=== PATIENT | female | born 1950 | race Caucasian/White ===

== ENCOUNTER → 2023-04-22 09:18 | Outpatient (BNVA) | payer MEDICARE, SELFPAY | PROVIDERS: Visit Provider Family Medicine | DX: E03.9 Hypothyroidism, unspecified (principal) | CPT/HCPCS: 80053; 80061; 84439; 84443; 85025 ==

== ENCOUNTER → 2023-06-04 14:02 | Outpatient (BNVA) | payer MEDICARE, OTHER, SELFPAY | PROVIDERS: Referring Provider Family Medicine; Visit Provider Internal Medicine Cardiovascular Disease | DX: I25.10 Atherosclerotic heart disease of native coronary artery without angina pectoris (principal); J44.9 Chronic obstructive pulmonary disease, unspecified; I10 Essential (primary) hypertension; E03.8 Other specified hypothyroidism; E78.00 Pure hypercholesterolemia, unspecified; K21.9 Gastro-esophageal reflux disease without esophagitis; Z87.891 Personal history of nicotine dependence | CPT/HCPCS: 99204 ==

== ENCOUNTER 2023-07-06 15:10 | Emergency (ER) | payer MEDICARE, OTHER, SELFPAY ==
--- NOTE | 2023-07-06 15:11 | XRR_ITS ---
PROCEDURE INFORMATION: Exam: XR Right Hip Exam date and time: 07/06/2023 3:31 PM Age: 72 years old Clinical indication: Right hip; Prior surgery; Surgery date: 6+ months; Surgery type: RT hip replacement; Patient HX: RT hip pain; HX hip replacement with dislocation x several times; Additional info: R hip pain TECHNIQUE: Imaging protocol: Radiologic exam of the right hip. Views: 1 view hip with pelvis when performed. COMPARISON: No relevant prior studies available. FINDINGS: Bones/joints: There is a dislocated bipolar right hip prosthesis with superior displacement of the femoral component in relation to the acetabular cup. No evidence of underlying fracture. Soft tissues: Unremarkable. XR/XR hip RT 1V wo/w pel [id number] IMPRESSION: Dislocated bipolar right hip prosthesis.
[2023-07-06 15:23] VITALS: BP 171/74; PULSE 64; RESP 18; TEMP 36.4; O2SAT 94; BMI 31.7
--- NOTE | 2023-07-06 15:25 | ED_ITS ---
HPI - Extremity Problem General: Chief complaint: Extremity Problem,Nontraumatic Stated complaint: RIGHT HIP PAIN Time Seen by Provider: 07/06/23 15:11 Source: patient Mode of arrival: EMS History of Present Illness: 72-year-old female with a history of marilyn ateral hip arthroplasties in the past she believes her right hip arthroplasty was done around April 2016. She states since then she has had 6 or 7 dislocations. Today she bent over to get something out of a lower drawer and felt a popping sensation and sudden onset of severe pain she feels like she dislocated her hip again she not strike her head there is no significant fall or trauma. MD Complaint: joint pain Onset (ago): minute(s) Pain Consistency: constant Location: left Quality: sharp Radiation: distal Relieving factors: immobilization Associated symptoms: Deny chest pain, fever(s) or rash Review of Systems Const: Denies: fever(s) or chills Card: Denies: chest pain Resp: Denies: dyspnea GI: Denies: abdominal pain : Denies: dysuria, urinary frequency or urinary urgency Musc: Denies: neck pain or back pain Skin/Breast: Denies: rash PFSH ED PFSH: Medical History Cancer of perirenal tissue Hypercholesteremia Hypothyroidism Hypertension COPD (chronic obstructive pulmonary disease) Surgical History History of bilateral hip replacements History of rotator cuff surgery History of carpal tunnel release History of hernia repair History of cholecystectomy History of bladder surgery Family History Mother Cancer Uterine Other Anesthesia complication CAD (coronary artery disease) Diabetes Hyperlipidemia Hypertension Stroke Denies family history of Liver disease Aneurysm Autoimmune disease Clotting disorder Dementia Hyperthyroidism Psychiatric illness Chronic kidney disease (CKD) Social History Smoking and tobacco/nicotine status: former use of tobacco/nicotine Alcohol intake: current Alcohol intake frequency: few times a month Substance/Drug Use: never Lives independently: Yes Marital status: / Number of children: 1 Current occupational status: retired Debi/Pentecostalism: Confucianist Special debi needs: No Agree to transfusion: Yes Physical Exam Const: GENERAL APPEARANCE: cooperative and comfortable ORIENTATION/CONSCIOUSNESS: Yes awake, Yes oriented to person, Yes oriented to place and Yes oriented to time HENMT: COMMON NORMALS: normocephalic, atraumatic and hearing grossly normal bilaterally HEAD & SCALP: normocephalic and atraumatic Resp: COMMON NORMALS: normal respiratory effort, No retractions, No use of accessory muscles and clear to auscultation bilaterally AUSCULTATION: clear to auscultation bilaterally Cardio: COMMON NORMALS: regular rate, regular rhythm and No murmurs present (Cardio) RATE: regular rate RHYTHM: regular rhythm GI: COMMON NORMALS: Soft to palpation and No hepatosplenomegaly present AUSCULTATION: Yes normoactive bowel sounds PALPATION: Yes Soft to palpation, No Tenderness to palpation present (GI), No Guarding due to palpation present (GI) and Yes No hepatosplenomegaly present Extremity: COMMON NORMALS: normal to inspection, capillary refill normal, no clubbing, cyanosis or edema, no calf tenderness and no pedal edema OTHER: Right hip pain held in a semiflexed position at the hip and the knee internally rotated. Patient is neurovascularly intact distally. Pulses lower extremity normal. Neuro: SENSORIUM/ORIENTATION: Yes oriented to person, Yes oriented to place and Yes oriented to time Skin: COMMON NORMALS: no rashes or lesions noted GENERAL SKIN EXAM: no rashes or lesions noted Procedures Orthopedic Joint Reduction Joint #1: Time Out Performed: Yes Side: right Joint Reduction Location: hip Analgesia: procedural sedation Technique used: traction/counter-traction Post-reduction neuro exam: intact Post-reduction vascular: intact Post Reduction X-Ray Obtained: Yes Post Reduction X-Ray Results: reduced Splint Applied: Yes (Right knee immobilizer) Patient Tolerated Procedure: well Procedural Sedation Indication: fracture/dislocation reduction ASA Class: I Time of Last PO Intake: 12:00 Preparation: radiographer cardiac catheterization applied, pulse oximeter, supplemental O2 applied, suction/airway equipment at bedside and IV secured IV Propofol dose (mg): 50 IV Etomidate dose (mg): 20 Additional Comments: Patient titrated 2 doses of etomidate 10 mg each still having difficulty getting here producing given 50 of propofol patient tolerated well. While recovering had some nausea and vomiting was given Zofran and observed Course Vital Signs: Vital signs: Vital Signs Temperature 97.5 F L 07/06/23 15:23 Pulse Rate 65 07/06/23 15:56 Respiratory Rate 17 07/06/23 15:56 Blood Pressure 171/74 07/06/23 15:56 Pulse Oximetry 94 07/06/23 15:23 Oxygen Delivery Me thod Nasal Cannula 07/06/23 15:56 MDM - Extremity (Nontraumatic) Medical Decision Making Right hip dislocation reduced under conscious sedation. Will place patient in knee immobilizer make arrangements for follow-up with orthopedics. Medical Records I reviewed the patient's medical records. Lab Data I reviewed the patient's lab results. Radiology Impressions Hip X-Ray 07/06/23 16:09 IMPRESSION: Successful reduction of dislocated right hip prosthesis with restored anatomic alignment. 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 Condition: Stable Prescriptions: No Action omeprazole 20 mg capsule,delayed release(DR/EC) 20 mg PO BID atorvastatin 80 mg tablet 80 mg PO DAILY fluticasone propion-salmeterol [Advair Diskus] 250-50 mcg/dose blister with device 1 inh inhalation BID aspirin [Adult Aspirin Regimen] 81 mg tablet,delayed release (DR/EC) 81 mg PO DAILY levothyroxine 25 mcg capsule 25 mcg PO DAILY Qty: 90 2RF metoprolol tartrate 25 mg tablet 25 mg PO BID Qty: 180 1RF Wixela Inhub 250-50 mcg/dose blister with device 1 ea INHALATION BID Discharge Orders: Discharge ED (Routine); Ordered 07/06/23 Ordered By: Naeem Da Silva Discharge Diet: Usual diet Discharge Activity: Increase activity as tolerated Patient Instructions: Hip Dislocation (ED), Opioid Safety, Pain Management Activity Restrictions/Additional Instructions: Thank you for choosing [facility] for your healthcare needs today. Please realize this is an emergency room and that we are providing you with a medical screening exam and this may not be complete and all inclusive of all the testing and or work up that you may need to determine your ailment or severity of your illness. It is very important that you follow up as instructed or that you return to the Emergency Department should you have concerns or if your condition changes or worsens in any way. You are seen today for right hip dislocation because this is a recurrent issue for you recommend that you follow-up with orthopedics case therapist will make arrangements for an appointment Coding Level of Care Code ED Metal Pourer for Lashae Gee
[2023-07-06 15:56] VITALS: BP 171/74; PULSE 65; RESP 17; O2SAT 94
[2023-07-06] MEDS: etomidate 2 mg/mL INJ SDV 10 mL 15 MG IVP (15:56)
--- NOTE | 2023-07-06 16:09 | XRR_ITS ---
PROCEDURE INFORMATION: Exam: XR Right Hip Exam date and time: 07/06/2023 4:10 PM Age: 72 years old Clinical indication: Hip pain; Right hip; Prior surgery; Surgery date: 6+ months; Surgery type: RT hip replacement; Patient HX: Post reduction RT hip TECHNIQUE: Imaging protocol: Radiologic exam of the right hip. Views: 1 view hip with pelvis when performed. COMPARISON: CR XR hip RT 1V wo/w pel [id number] 07/06/2023 3:31 PM FINDINGS: Bones/joints: Patient has undergone satisfactory reduction of dislocated right hip prosthesis with restored anatomic alignment. No evidence of underlying fracture. Soft tissues: Unremarkable. XR/XR hip RT 1V wo/w pel [id number] IMPRESSION: Successful reduction of dislocated right hip prosthesis with restored anatomic alignment.
[2023-07-06] MEDS: propofol 10 mg/mL SDV 20 mL 50 MG IVP (16:22)
[2023-07-06] MEDS: ondansetron 2 mg/ML SDV 2 mL 4 MG IVP (17:12)
== END 2023-07-06 17:51 | disposition home or self-care (01) ==
PROVIDERS: Emergency Provider Family Medicine
DX: M24.451 Recurrent dislocation, right hip (principal); T84.020A Dislocation of internal right hip prosthesis, initial encounter; Z79.82 Long term (current) use of aspirin; Z87.891 Personal history of nicotine dependence; I10 Essential (primary) hypertension; J44.9 Chronic obstructive pulmonary disease, unspecified; Z85.528 Personal history of other malignant neoplasm of kidney; X50.1XXA Overexertion from prolonged static or awkward postures, initial encounter; Z96.643 Presence of artificial hip joint, bilateral
CPT/HCPCS: 27265; 73501; 96374; 99152; 99285; J2405; J2704; J3490

== ENCOUNTER 2023-07-13 01:01 | Emergency (ER) | payer MEDICARE, OTHER, SELFPAY ==
[2023-07-13] VITALS (10 sets, daily range): BP systolic 117–163; BP diastolic 59–103; PULSE 59–85; RESP 14–24; TEMP 36.6; O2SAT 96–99; BMI 31.1
--- NOTE | 2023-07-13 01:04 | XRR_ITS ---
PROCEDURE INFORMATION: Exam: XR Right Hip Exam date and time: 07/13/2023 1:07 AM Age: 72 years old Clinical indication: Right hip; Prior surgery; Surgery date: 6+ months; Surgery type: RT clemencia; Patient HX: C/O RT hip pain. Had dislocation on 07/06/2023. ; Additional info: Injury TECHNIQUE: Imaging protocol: Radiologic exam of the right hip. Views: 1 view hip with pelvis when performed. COMPARISON: CR XR hip RT 1V wo/w pel [id number] 07/06/2023 4:10 PM FINDINGS: Bones/joints: Superior dislocation of a right hip arthroplasty. No fracture identified. Soft tissues: Unremarkable. XR/XR hip RT 2-3V wo/w pel* [id number] IMPRESSION: 1. Superior dislocation of a right hip arthroplasty. 2. No fracture identified.
--- NOTE | 2023-07-13 01:06 | W.ED.LOWEXIN ---
HPI - Extremity Injury (Lower) General: Chief Complaint: Extremity Injury, Upper Stated Complaint: HIP PAIN Time Seen by Provider: 07/13/23 01:04 Source: patient Mode of arrival: ambulatory Limitations: no limitations History of Present Illness: 72-year-old female states she has had recurrent right hip dislocations states she did try to get out of bed this morning just before arrival and felt a pop in her right hip has had severe pain not been able ambulate that hip is shortened and rotated. She denies any other injury she rates her pain a 6 out of 10 currently Review of Systems Const: Denies: fever(s), chills, body aches or change in appetite ENMT: Denies: throat pain or dental pain Card: Denies: chest pain Resp: Denies: dyspnea GI: Denies: abdominal pain, nausea, vomiting or diarrhea Musc: Reports: extremity pain; Denies: neck pain or back pain Skin/Breast: Denies: rash Neuro: Denies: headache(s) PFSH ED PFSH: Medical History Cancer of perirenal tissue Hypercholesteremia Hypothyroidism Hypertension COPD (chronic obstructive pulmonary disease) Surgical History History of bilateral hip replacements History of rotator cuff surgery History of carpal tunnel release History of hernia repair History of cholecystectomy History of bladder surgery Family History Mother Cancer Uterine Other Anesthesia complication CAD (coronary artery disease) Diabetes Hyperlipidemia Hypertension Stroke Denies family history of Liver disease Aneurysm Autoimmune disease Clotting disorder Dementia Hyperthyroidism Psychiatric illness Chronic kidney disease (CKD) Social History Smoking and tobacco/nicotine status: former use of tobacco/nicotine Alcohol intake: current Alcohol intake frequency: few times a month Substance/Drug Use: never Lives independently: Yes Marital status: / Number of children: 1 Current occupational status: retired Debi/Yazidism: Denominational Special debi needs: No Agree to transfusion: Yes Physical Exam Const: COMMON NORMALS: no acute distress, patient oriented x3 and healthy appearing HENMT: COMMON NORMALS: normocephalic and atraumatic HEAD & SCALP: normocephalic and atraumatic Neck/C-Spine: COMMON NORMALS: full ROM and supple Chest: COMMONS NORMALS: normal inspection of the chest Resp: COMMON NORMALS: normal respiratory effort GI: COMMON NORMALS: Normal to inspection, nondistended, normoactive bowel sounds present, Soft to palpation, non-tender and no masses PALPATION: Yes Soft to palpation Extremity: NARRATIVE EXTREMITY EXAM: Tenderness noted to right hip distal pulses intact Neuro: COMMON NORMALS: patient oriented x3, moves all extremities and no focal motor deficits Psych: COMMON NORMALS: mental status grossly normal, Normal thought process present and cooperative THOUGHT PROCESS: Normal thought process present Skin: COMMON NORMALS: no rashes or lesions noted and no wounds GENERAL SKIN EXAM: no rashes or lesions noted Procedures Orthopedic Joint Reduction Joint #1: Time Out Performed: Yes Side: right Joint Reduction Location: hip Analgesia: procedural sedation Technique used: traction/counter-traction Post-reduction neuro exam: intact Post-reduction vascular: intact Post Reduction X-Ray Obtained: Yes Post Reduction X-Ray Results: reduced Splint Applied: Yes Procedural Sedation Indication: fracture/dislocation reduction ASA Class: I Time of Last PO Intake: 18:00 Preparation: bus driver/monitor applied and pulse oximeter IV Propofol dose (mg): 80 Patient Tolerated Procedure: well Complications: none Course Vital Signs: Vital signs: Vital Signs Temperature 98 F 07/13/23 01:04 Pulse Rate 71 07/13/23 02:10 Respiratory Rate 20 H 07/13/23 02:10 Blood Pressure 144/71 07/13/23 02:10 Pulse Oximetry 98 07/13/23 02:10 Oxygen Delivery Me thod Nasal Cannula 07/13/23 01:30 MDM - Extremity Injury (Lower) Medical Decision Making Patient presents with a right hip dislocation was able to successfully reduce the hip she has follow-up with orthopedics was placed in a knee immobilizer she is stable for discharge Medical Records I reviewed the patient's medical records. Lab Data Radiology Impressions Hip/Pelvis X-Ray 07/13/23 01:04 IMPRESSION: 1. Superior dislocation of a right hip arthroplasty. 2. No fracture identified. Hip X-Ray 07/13/23 01:28 IMPRESSION: 1. Anatomic alignment of the right hip arthroplasties status post reduction. 2. No fracture identified. 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 Condition: Stable Prescriptions: No Action omeprazole 20 mg capsule,delayed release(DR/EC) 20 mg PO BID atorvastatin 80 mg tablet 80 mg PO DAILY fluticasone propion-salmeterol [Advair Diskus] 250-50 mcg/dose blister with device 1 inh inhalation BID aspirin [Adult Aspirin Regimen] 81 mg tablet,delayed release (DR/EC) 81 mg PO DAILY levothyroxine 25 mcg capsule 25 mcg PO DAILY Qty: 90 2RF metoprolol tartrate 25 mg tablet 25 mg PO BID Qty: 180 1RF Wixela Inhub 250-50 mcg/dose blister with device 1 ea INHALATION BID Discharge Orders: Discharge ED (Routine); Ordered 07/13/23 Ordered By: German Anthony Referrals: Jordon Franco DO [Physician] - 1-3 days Discharge Diet: Advance as tolerated Discharge Activity: Resume usual activity Patient Instructions: Hip Dislocation (ED) Coding Level of Care Code ED Fpga Design Engineer for Lashae Gee
[2023-07-13] MEDS: ondansetron 2 mg/ML SDV 2 mL 4 MG IVP ×2 (01:13→02:32)
--- NOTE | 2023-07-13 01:28 | XRR_ITS ---
PROCEDURE INFORMATION: Exam: XR Right Hip Exam date and time: 07/13/2023 1:32 AM Age: 72 years old Clinical indication: Hip pain; Right hip; Prior surgery; Surgery date: 6+ months; Surgery type: RT clemencia; Patient HX: Check S/P reduction; Additional info: Post reduction TECHNIQUE: Imaging protocol: Radiologic exam of the right hip. Views: 1 view hip with pelvis when performed. COMPARISON: CR (PELVIS, ) 07/13/2023 1:07 AM FINDINGS: Bones/joints: Anatomic alignment of the right hip arthroplasties status post reduction. No fracture identified. Soft tissues: Unremarkable. XR/XR hip RT 1V wo/w pel [id number] IMPRESSION: 1. Anatomic alignment of the right hip arthroplasties status post reduction. 2. No fracture identified.
[2023-07-13] MEDS: propofol 10 mg/mL SDV 20 mL 100 MG IVP (01:38)
== END 2023-07-13 02:43 | disposition home or self-care (01) ==
PROVIDERS: Emergency Provider Emergency Medicine
DX: M24.451 Recurrent dislocation, right hip (principal); T84.020A Dislocation of internal right hip prosthesis, initial encounter; Z79.82 Long term (current) use of aspirin; Z87.891 Personal history of nicotine dependence; I10 Essential (primary) hypertension; J44.9 Chronic obstructive pulmonary disease, unspecified; Z96.643 Presence of artificial hip joint, bilateral; X58.XXXA Exposure to other specified factors, initial encounter; Z85.528 Personal history of other malignant neoplasm of kidney
CPT/HCPCS: 27265; 29530; 73501; 73502; 96374; 96375; 96376; 99284; J2405; J2704

== ENCOUNTER 2023-07-25 15:28 | Outpatient (CLI) | payer MEDICARE, OTHER, SELFPAY | END 2023-07-25 15:29 | disposition home or self-care (01) | LOC: SPT 15:29 | PROVIDERS: PCP Family Medicine; Visit Provider Physician Assistant | DX: Z46.89 Encounter for fitting and adjustment of other specified devices (principal); S73.004D Unspecified dislocation of right hip, subsequent encounter; X58.XXXD Exposure to other specified factors, subsequent encounter | CPT/HCPCS: 97760; 99203; L1686 ==

== ENCOUNTER 2023-09-20 07:32 | Emergency (ER) | payer MEDICARE, OTHER, SELFPAY ==
[2023-09-20 07:38] VITALS: BP 118/94; PULSE 127; RESP 17; TEMP 36.7; O2SAT 97
--- NOTE | 2023-09-20 07:44 | XR_ITS ---
WS: [id number] Exam: XR hip RT 2-3V wo/w pel* [id number] Date/Time of Exam: 09/20/2023 7:44 AM Reason For Exam: hip pain, recent revision of hip replacement Comparison 07/13/2023. There has been revision of RIGHT total hip prosthesis. Position appears to be satisfactory. Postop ch anges in the adjacent soft tissues. IMPRESSION: 1. RIGHT total hip arthroplasty in satisfactory position. There has been revision of the arthroplast y since the prior study.
--- NOTE | 2023-09-20 07:48 | ED_ITS ---
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 She says she was lifting her leg and felt something pop and then started having pain in her right groin with any sort of lifting or moving. No neurologic or motor deficits. She says she has increased swelling down her thigh and hip area. No redness. No warmth. Review of Systems Narrative: Constitutional symptoms: Negative except as documented in HPI. Skin symptoms: Negative except as documented in HPI. Eye symptoms: Negative except as documented in HPI. ENMT symptoms: Negative except as documented in HPI. Respiratory symptoms: Negative except as documented in HPI. Cardiovascular symptoms: Negative except as documented in HPI. Gastrointestinal symptoms: Negative except as documented in HPI. Genitourinary symptoms: Negative except as documented in HPI. Musculoskeletal symptoms: Negative except as documented in HPI. Neurologic symptoms: Negative except as documented in HPI. Psychiatric symptoms: Negative except as documented in HPI. Endocrine symptoms: Negative except as documented in HPI. PFSH ED PFSH: Medical History Cancer of perirenal tissue Hypercholesteremia Hypothyroidism Hypertension COPD (chronic obstructive pulmonary disease) Surgical History History of bilateral hip replacements History of rotator cuff surgery History of carpal tunnel release History of hernia repair History of cholecystectomy History of bladder surgery Family History Mother Cancer Uterine Other Anesthesia complication CAD (coronary artery disease) Diabetes Hyperlipidemia Hypertension Stroke Denies family history of Liver disease Aneurysm Autoimmune disease Clotting disorder Dementia Hyperthyroidism Psychiatric illness Chronic kidney disease (CKD) Social History Smoking and tobacco/nicotine status: former use of tobacco/nicotine Alcohol intake: current Alcohol intake frequency: few times a month Substance/Drug Use: never Lives independently: Yes Marital status: / Number of children: 1 Current occupational status: retired Debi/Rastafari: Buddhism Special debi needs: No Agree to transfusion: Yes Physical Exam Narrative: EXAM NARRATIVE: General: Alert, no acute distress. Skin: warm and dry Head: Normocephalic Neck: Trachea midline Eye: Extraocular movements are intact. Ears, nose, mouth and throat: Oral mucosa moist Respiratory: Respirations are non-labored Musculoskeletal: No deformity. Neurological: Alert and oriented to person, place, time, and situation, No focal neurological deficit observed. Psychiatric: Cooperative, appropriate mood & affect. Course Vital Signs: Vital signs: Vital Signs Temperature 98.1 F 09/20/23 07:38 Pulse Rate 127 H 09/20/23 07:38 Respiratory Rate 17 09/20/23 07:38 Blood Pressure 118/94 09/20/23 07:38 Pulse Oximetry 97 09/20/23 07:38 Oxygen Delivery Me thod Room Air 09/20/23 07:38 MDM - Extremity (Nontraumatic) Medical Decision Making Medical decision making: Differential diagnosis including but not limited to and based on the above HPI, review of systems and physical exam: Patient with acute pain 7 days out from hip revision surgery with acute groin pain I have concern for pelvic fracture or hardware failure. X-ray was ordered. This showed no abnormalities so given the level of her pain I have ordered a CT scan. Orders placed to evaluate differential diagnosis based on the above differential, HPI and physical exam X-ray of the right hip shows no fractures. Hardware appears intact. I reviewed and interpreted this personally. I also reviewed the radiology report. CT of the pelvis without contrast: I reviewed and interpreted these films personally. I also reviewed the radiology reports. I also reviewed the films with the orthopedic doctor on-call FINDINGS: Bones/joints: Bilateral hip replacement. 7 x 14 cm fluid collection containing gas along the lateral hip. This is presumably a hematoma with gas related to the recent surgery. An abscess is not excluded based on CT appearance. Small bubbles of periarticular gas are scattered in the gluteal region and upper thigh. No osseous abnormality. Soft tissues: See Bones/joints finding. Gas and fluid collection in the lateral right thigh is probably a postoperative hematoma. Infection not excluded. Consultation: I spoke with Dr. Franco who is on-call for orthopedics. His clinic actually had referred the patient to [place] for her surgery. He reviewed the films. Hardware appears stable and intact. He recommends that she follow-up with the operating physician soon. She may need to decrease her active to vit D at this point. She is able to walk. Reexamination: I observed the patient walking to the restroom. She does have some pain with movement but is fairly ambulatory. I also examined her surgical site at this time. Dressing in place. some surrounding bruising. no signs of infection. no warmth. no induration. Medical Records I reviewed the patient's medical records. Lab Data Radiology Impressions Pelvis CT 09/20/23 08:19 IMPRESSION: Gas and fluid collection in the lateral right thigh is probably a postoperative hematoma. Infection not excluded. All radiology interpretation(s) finalized by discharge Other Data Assessment and plan: Postsurgical hip pain -IM Dilaudid and Norflex in the emergency room. -Patient has oxycodone and tramadol at home. -Patient has scheduled follow-up with the orthopedist that performed her surgery in [place] - Discharged home - Discussed plan with patient. Answered any questions. - Evaluation and treatment of this problem were appropriate in the emergency setting. Discharge Plan Discharge Patient Disposition: Home Clinical Impression: Acute postoperative pain of hip Condition: Stable Prescriptions: No Action omeprazole 20 mg capsule,delayed release(DR/EC) 20 mg PO BID fluticasone propion-salmeterol [Advair Diskus] 250-50 mcg/dose blister with device 1 inh inhalation DAILY aspirin [Adult Aspirin Regimen] 81 mg tablet,delayed release (DR/EC) 81 mg PO DAILY (DME) right hip abduction brace See Rx Instructions .Route .MEDSUPPLY Qty: 1 0RF Rx Instructions: As directed metoprolol tartrate 25 mg tablet 25 mg PO BID Qty: 180 1RF cyclobenzaprine 10 mg tablet 10 mg PO TID PRN (Reason: Muscle Spasm) ondansetron HCl 4 mg tablet 4 mg PO TID PRN (Reason: Nausea And Vomiting) tramadol 50 mg tablet 50 mg PO Q6H PRN (Reason: Pain) levothyroxine 50 mcg tablet 50 mcg PO BEDTIME oxycodone 5 mg tablet 5 mg PO Q6H PRN (Reason: Pain) Senna-S 8.6-50 mg Tablet 1 tab-cap PO DAILY Tylenol Ex Str Rapid Release 500 mg Tablet 1,000 mg PO Q6H PRN (Reason: Pain) iron 325 mg (65 mg iron) Tablet 325 mg PO DAILY Vitamin D3 125 mcg (5,000 unit) Tablet 125 mcg PO QAM atorvastatin 80 mg tablet 80 mg PO BEDTIME Discharge Orders: Discharge ED (Routine); Ordered 09/20/23 Ordered By: Sosa Haskins Referrals: Gabriel Chandler MD [Primary Care Provider] - (Please keep follow-up with your orthopedic surgeon or follow-up sooner if possible. You have been screened and evaluated and felt safe for discharge. Health conditions do change or evolve sometimes and as such it is important that you follow up with your Primary Doctor to be re checked, 3-5 days is a general good time frame for follow up. You are always welcome to return to the ED for re assessment if your symptoms are worsening or you have new concerns) Discharge Diet: Usual diet Discharge Activity: Increase activity as tolerated Patient Instructions: Opioid Safety, Pain Management Coding Level of Care Code ED Drum Stock Clerk for Lashae Gee
--- NOTE | 2023-09-20 08:19 | CTR_ITS ---
PROCEDURE INFORMATION: Exam: CT Pelvis Without Contrast; Skeletal Exam date and time: 09/20/2023 9:00 AM Age: 72 years old Clinical indication: Hip pain; Right hip; Prior surgery; Surgery date: 3-7 days post-operative; Surgery type: RT hip; Patient HX: RT groin pain; Additional info: Right pelvic/groin pain TECHNIQUE: Imaging protocol: Computed tomography of the pelvis without contrast. Exam focused on the skeleton. Radiation optimization: All CT scans at this facility use at least one of these dose optimization techniques: automated exposure control; mA and/or kV adjustment per patient size (includes targeted exams where dose is matched to clinical indication); or iterative reconstruction. COMPARISON: CR XR hip RT 2-3V wo/w pel* [id number] 09/20/2023 7:55 AM RADIATION DOSE METRICS: Total DLP (mGy-cm): 867.02 FINDINGS: Bones/joints: Bilateral hip replacement. 7 x 14 cm fluid collection containing gas along the lateral hip. This is presumably a hematoma with gas related to the recent surgery. An abscess is not excluded based on CT appearance. Small bubbles of periarticular gas are scattered in the gluteal region and upper thigh. No osseous abnormality. Soft tissues: See Bones/joints finding. CT/CT pelvis wo con [id number] IMPRESSION: Gas and fluid collection in the lateral right thigh is probably a postoperative hematoma. Infection not excluded.
[2023-09-20] MEDS: HYDROmorphone 1 mg/mL INJ 1 mL IM (10:13)
[2023-09-20] MEDS: orphenadrine 30 mg/mL Inj 2 mL 60 MG IM (10:14)
== END 2023-09-20 10:57 | disposition home or self-care (01) ==
PROVIDERS: Emergency Provider Emergency Medicine; PCP Family Medicine
DX: G89.18 Other acute postprocedural pain (principal); M25.551 Pain in right hip; Z79.82 Long term (current) use of aspirin; Z87.891 Personal history of nicotine dependence; Z85.89 Personal history of malignant neoplasm of other organs and systems; I10 Essential (primary) hypertension; J44.9 Chronic obstructive pulmonary disease, unspecified; E78.5 Hyperlipidemia, unspecified; Z96.641 Presence of right artificial hip joint
CPT/HCPCS: 72192; 73502; 96372; 99284; J1170; J2360

== ENCOUNTER → 2023-12-03 13:51 | Outpatient (BNVA) | payer MEDICARE, OTHER, SELFPAY | PROVIDERS: PCP Family Medicine; Visit Provider Internal Medicine Cardiovascular Disease | DX: I25.10 Atherosclerotic heart disease of native coronary artery without angina pectoris (principal); I10 Essential (primary) hypertension; E78.00 Pure hypercholesterolemia, unspecified; T84.59XS Infection and inflammatory reaction due to other internal joint prosthesis, sequela; Y99.9 Unspecified external cause status; Z96.649 Presence of unspecified artificial hip joint | CPT/HCPCS: 99214 ==

== ENCOUNTER → 2024-01-31 09:46 | Outpatient (BNVA) | payer MEDICARE, OTHER, SELFPAY | PROVIDERS: PCP Family Medicine; Visit Provider Nurse Practitioner Family | DX: I10 Essential (primary) hypertension (principal); I25.10 Atherosclerotic heart disease of native coronary artery without angina pectoris; Z87.891 Personal history of nicotine dependence | CPT/HCPCS: 99214 ==

== ENCOUNTER → 2024-02-11 15:05 | Outpatient (BNVA) | payer MEDICARE, OTHER, SELFPAY | PROVIDERS: PCP Family Medicine; Visit Provider Physician Assistant | DX: M25.512 Pain in left shoulder (principal); M75.42 Impingement syndrome of left shoulder | CPT/HCPCS: 20610; 73030; 99213; J3301 ==

== ENCOUNTER 2024-02-26 14:41 | Outpatient (CLI) | payer MEDICARE, OTHER, SELFPAY ==
--- NOTE | 2024-02-26 15:00 | USCV_ITS ---
Mihaela Silva Age: 73 Gender: F : 1950 Exam Date: 02/26/2024 14:53 Ordering Phys: Shannon Phipps Technologist: CT Exam Location: [facility] – [place]_ Indication: hammonds BP: 111 / 71 HR: 70 Rhythm: Sinus Technical Quality: Adequate MEASUREMENTS (Male / Female) Normal Values 2D ECHO LVOT Diameter 2.0 cm LV Ejection Fraction MOD 4C 59.7 % LV Ejection Fraction MOD 2C 56.4 % LV Ejection Fraction 2C AL 58.1 % LA Diameter 3.3 cm RA Systolic Volume 4C AL 27.1 ml RA Systolic Volume 4C MOD 25.1 ml LA Sys Volume AL 41.5 cm cubed LA Sys Volume Index AL 20.5 cm cubed/m squared Aorta at Sinotubular Diameter 2.7 cm IVC Diameter 2.2 cm M-MODE LA Ao Ratio MM 1.3 AV Cusp Separation MM 2.0 cm DOPPLER AV Peak Velocity 125.0 cm/s LVOT Peak Velocity 109.0 cm/s AV Area Cont Eq vti 3.0 cm squared AV Area Cont Eq pk 2.8 cm squared MV Peak Velocity 107.0 cm/s MV Area PHT 3.1 cm squared Mitral E to A Ratio 0.9 TR Peak Velocity 254.0 cm/s TR Peak Gradient 25.8 mmHg TV Peak E Velocity 70.0 cm/s Right Atrial Pressure 3.0 mmHg Pulmonary Artery Systolic Pressu 28.8 mmHg PV Peak Velocity 98.0 cm/s FINDINGS Left Ventricle Left ventricle is normal in size. LV systolic function is normal with EF of 55 to 60%. No regional wall motion abnormalities are seen. Grade 1 diastolic dysfunction. Right Ventricle Normal in size and function Right Atrium Normal in size Left Atrium Normal in size Mitral Valve Mild mitral annular calcification. Mild mitral regurgitation. Aortic Valve Aortic valve is structurally normal. No significant stenosis or regurgitation. Tricuspid Valve Mild tricuspid regurgitation. Pulmonary artery systolic pressure is normal. Pulmonic Valve Not well visualized Pericardium Normal Aorta Normal in size IVC Appears to be normal CONCLUSIONS LV systolic function is normal with EF of 55 to 60%. Grade 1 diastolic dysfunction. Mild mitral regurgitation Mild tricuspid regurgitation No comparison studies are available. Imer Dean MD (Electronically Signed) Final Date: 27 February 2024 12:30 S
== END 2024-02-26 14:42 | disposition home or self-care (01) ==
LOC: RAD 14:41
PROVIDERS: PCP Family Medicine; Visit Provider Nurse Practitioner Family
DX: I50.30 Unspecified diastolic (congestive) heart failure (principal); I25.10 Atherosclerotic heart disease of native coronary artery without angina pectoris; R06.09 Other forms of dyspnea
CPT/HCPCS: 93306

== ENCOUNTER → 2024-03-17 16:05 | Outpatient (BNVA) | payer MEDICARE, OTHER, SELFPAY | PROVIDERS: PCP Family Medicine; Visit Provider Nurse Practitioner | DX: R39.9 Unspecified symptoms and signs involving the genitourinary system (principal); R30.0 Dysuria | CPT/HCPCS: 81000; 87086 ==

== ENCOUNTER → 2024-04-07 09:11 | Outpatient (BNVA) | payer MEDICARE, OTHER, SELFPAY | PROVIDERS: PCP Family Medicine; Visit Provider Physician Assistant | DX: M75.42 Impingement syndrome of left shoulder (principal) | CPT/HCPCS: 99213 ==

== ENCOUNTER → 2024-05-22 15:57 | Outpatient (BNVA) | payer MEDICARE, OTHER, SELFPAY | PROVIDERS: PCP Family Medicine; Visit Provider Family Medicine | DX: E03.8 Other specified hypothyroidism (principal); I10 Essential (primary) hypertension | CPT/HCPCS: 80053; 80061; 84439; 84443; 85025 ==

== ENCOUNTER → 2024-06-01 09:52 | Outpatient (BNVA) | payer MEDICARE, OTHER, SELFPAY | PROVIDERS: PCP Family Medicine; Visit Provider Nurse Practitioner Family | DX: I10 Essential (primary) hypertension (principal); I25.10 Atherosclerotic heart disease of native coronary artery without angina pectoris; E78.5 Hyperlipidemia, unspecified | CPT/HCPCS: 99214 ==

== ENCOUNTER → 2024-06-25 09:07 | Outpatient (BNVA) | payer MEDICARE, OTHER, SELFPAY | PROVIDERS: PCP Family Medicine; Visit Provider Physician Assistant | DX: M71.21 Synovial cyst of popliteal space [Baker], right knee (principal); M17.11 Unilateral primary osteoarthritis, right knee | CPT/HCPCS: 73560; 73565; 99213 ==

== ENCOUNTER → 2025-04-28 13:39 | Outpatient (BNVA) | payer MEDICARE, OTHER, SELFPAY | PROVIDERS: PCP Family Medicine; Visit Provider Internal Medicine Cardiovascular Disease | DX: I25.10 Atherosclerotic heart disease of native coronary artery without angina pectoris (principal); I10 Essential (primary) hypertension; E78.00 Pure hypercholesterolemia, unspecified; K21.9 Gastro-esophageal reflux disease without esophagitis; Z87.891 Personal history of nicotine dependence | CPT/HCPCS: 99214 ==

== ENCOUNTER 2025-06-14 17:45 | Emergency (ER) | payer MEDICARE, OTHER, SELFPAY ==
--- NOTE | 2025-06-14 17:48 | XRR_ITS ---
PROCEDURE INFORMATION: Exam: XR Right Hip Exam date and time: 06/14/2025 6:24 PM Age: 74 years old Clinical indication: Injury or trauma; Fall; Blunt trauma (contusions or hematomas); Right; Hip and pelvic region; Prior surgery; Surgery date: 6+ months; Surgery type: Misael hip TECHNIQUE: Imaging protocol: Radiologic exam of the right hip. Views: 2 or 3 views hip with pelvis when performed. COMPARISON: CT pelvis wo con [id number] 09/20/2023 9:00 AM FINDINGS: Bones/joints: Demineralization consistent with age. Bilateral hip replacements which appear intact. Probable old bony fragments seen anterolateral to right hip. Old bony fragments seen adjacent to the left greater trochanter. Degenerative changes pubic bones at symphysis pubis and SI joints. Degenerative changes lower lumbar spine marked at L4-L5 and L5-S1. Artie to be no acute appearing bony abnormality. Soft tissues: Unremarkable. XR/XR hip RT 2-3V wo/w pel* [id number] IMPRESSION: 1. Bilateral hip replacements appear intact. 2. Artie to be no acute appearing bony abnormality.
--- OUTSIDE RECORDS SUMMARY | 2025-06-14 17:53 | XMS_ITS | Patient Health Record ---
Author Organization [facility] Address [address] [place] [address] Care Team Providers Care Eye Surgeon Name Role Phone Te Rosado MD Primary Care Provider Unavail able Kamla Akhil Unavailable [phone] Allergies Allergen (clinical drug ingredient) Drug/Non Drug Allergy documented on EMR Reaction Allergy Type Onset Date Status Penicillin Allergy Unknown Drug Allergy Active Reason For Referral No Information Medications Medication SIG (Take, Route, Frequency, Duration) Notes Start Date End Date Status Celecoxib 200 MG Capsule 1 CAPSULE WITH FOOD ONCE A DAY FOR PAIN AND INFLAMMATION ORALLY 90; Duration: 90 Active Omeprazole 20 MG Capsule Delayed Release 1 capsule Orally BID Active Aspirin *[facility] for [facility]* Active Triamcinolone Acetonide 0.5 % Cream 1 application Externally Twice a day; Duration: 30 days 11/26/2019 Active COVID-19 mRNA Vacc (Moderna) 2nd dose 10/04/20 *[facility] for [facility]Rx and Interaction Alerts* Active Metoprolol Succinate *[facility]* Active Advair HFA 230-21 MCG/ACT Aerosol 2 puffs Inhalation Twice a day Active Levothyroxine Sodium 50 MCG Tablet 1 tablet Orally daily Active Flonase Allergy Relief 50 MCG/ACT Suspension 1 spray in each nostril Nasally Once a day Active Atorvastatin Calcium 10 MG Tablet 1 tablet Orally Once a day Active Social History Social History Additional Details Category Social Info Options Details Migrated Social History Drugs/Alcohol: (Alcohol Screen):Did you have a drink containing alcohol in the past year?: Yes, Points: 0, Interpretation: Negative ;(Drugs):Have you used drugs other than those for medical reasons in the past 12 months? No ; Tobacco Use: (Tobacco Use/Smoking):Smoking Status:: former smoker ; Problems Problem Type SNOMED Code ICD Code Onset Dates Problem Status W/U Status Risk Notes Problem Localized, primary osteoarthritis of the hand (275733338) Primary osteoarthritis, right hand (M19.041) Active confirmed Problem Trochanteric bursitis of right hip (121162305323027) Trochanteric bursitis, right hip (M70.61) Active confirmed Problem Enthesopathy of hip region (14466978) Gluteal tendinitis, right hip (M76.01) Active confirmed Problem Prosthetic joint dislocation (338425991) Dislocation of internal left hip prosthesis, initial encounter (T84.021A) Active confirmed Problem Dislocation of other internal joint prosthesis, subsequent encounter (T84.028D) Active confirmed Problem Infection and inflammatory reaction due to internal orthopedic fixation device (471201204) Infection and inflammatory reaction due to other internal joint prosthesis, subsequent encounter (T84.59XD) Active confirmed Problem History of musculoskeletal operation (953096488) Aftercare following joint replacement surgery (Z47.1) Active confirmed Problem Total hip replacement Prosthesis (721881436) Presence of right artificial hip joint (Z96.641) Active confirmed Problem History of artificial joint (813712002) Presence of left artificial hip joint (Z96.642) Active confirmed Problem Trochanteric bursitis of right hip (574835625246422) Trochanteric bursitis of right hip (M70.61) Active confirmed Problem Arthralgia of the pelvic region and thigh (835750114) Right hip pain (M25.551) Active confirmed Problem Sciatica (14462550) Sciatica of right side (M54.31) Active confirmed Problem Lumbar spondylosis (426755290) Lumbar spondylosis (M47.816) Active confirmed Problem Arthralgia of the pelvic region and thigh (022149279) Left hip pain (M25.552) Active confirmed Problem Tinea pedis (8193731) Tinea pedis of both feet (B35.3) Active confirmed Problem Intermittent claudication (44282378) Intermittent claudication (I73.9) Active confirmed Problem Localized, primary osteoarthritis of the pelvic region and thigh (864029242) Primary osteoarthritis of right hip (M16.11) Active confirmed Problem Localized, primary osteoarthritis of the pelvic region and thigh (957011498) Primary osteoarthritis of left hip (M16.12) Active confirmed Problem Sacroiliac disorder (477020386) 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) Active confirmed Problem Arthritis of left hip (7649990377610146) Arthritis of left hip (M16.12) Active confirmed Problem Spinal stenosis of lumbar region (57915380) Lumbar stenosis without neurogenic claudication (M48.061) Active confirmed Problem Femoral acetabular impingement (922786940) Femoral acetabular impingement (M25.859) Active confirmed Problem Ulcer of right foot (disorder) (756740149) Ulcer of right foot with fat layer exposed (L97.512) Active confirmed Problem Dystrophic nail (23237140) Dystrophic nail (L60.3) Active confirmed Problem Lumbar spinal stenosis (25323066) Lumbar stenosis (M48.06) Active confirmed Problem Synovial cyst of lumbar spine (disorder) (527575286) Synovial cyst of lumbar facet joint (M71.38) Active confirmed Problem Lumbosacral spondylosis without myelopathy (64922368) Osteoarthritis of facet joint of lumbar spine (M47.896) Active confirmed Problem Localized, primary osteoarthritis of the hand (735857439) Arthritis of carpometacarpal (CMC) joint of right thumb (M18.11) Active confirmed Problem Strain of tendon of left hamstring muscle (disorder) (84528986442694) Hamstring tendinitis of left thigh (M76.892) Active confirmed Plan Of Treatment No Information Insurance Providers Payer Name Payer Address Payer Phone Subscriber Number Group Number Insured Name Patient Relationship to Insured Coverage Start Date Coverage End Date [employer] PART B [address] [place] [address] [id number] Mihaela Silva Self - patient is the insured [employer] [address] [address] [place] [address] [id number] Mihaela Silva Self - patient is the insured Medical (General) History Medical History History ICD Code pneumonia cancer COPD Hypothyroidism thyroid disorder Arthritis reflux hyperlipidemia Surgical History Surgery Date(Month/Year) appendectomy carpal tunnel release elbow surgery - right vulvectomy Tib/Fib right Hospitalization History Reason Date(Month/Year) see surg hx
--- OUTSIDE RECORDS SUMMARY | 2025-06-14 17:53 | XMS_ITS | Patient Health Record ---
Author Organization [facility] Billing Info Address [address] [place] [address] Phone [phone] Care Team Providers Care Salon Assistant Name Role Phone DANNI BLOUNT MD Primary Care Provider Jovanny BALDERAS MD, POOL [facility] [phone] Allergies Allergen (clinical drug ingredient) Drug/Non Drug Allergy documented on EMR Reaction Allergy Type Onset Date Status Penicillin rash Drug Allergy 07/03/2013 Activ e Reason For Referral No Information Medications Medication SIG (Take, Route, Frequency, Duration) Notes Start Date End Date Diagnosis (ICD Code) Status Metoprolol Tartrate 25 MG Tablet 1 tab(s) Orally BID; Duration: 90 days Elevated coronary artery calcium score (ICD_10 - R93.1) Active Aspir-Low 81 MG Tablet Delayed Release 1 tablet Orally Once a day; Duration: 90 days Elevated coronary artery calcium score (ICD_10 - R93.1) Active Atorvastatin Calcium 80 MG Tablet 1 tablet Orally Daily at bedtime; Duration: 90 days Elevated coronary artery calcium score (ICD_10 - R93.1) Active Advair Diskus 250-50 MCG/DOSE Aerosol Powder Breath Activated 1 puff Inhalation Twice a day Active Omeprazole 20 MG Capsule Delayed Release 1 capsule Orally Twice a day; Duration: 30 days Active Levothyroxine Sodium 25 MCG Tablet 1 tablet on an empty stomach in the morning Orally Once a day; Duration: 30 day(s) Active Immunizations Status Vaccine Route Administration Date Visit Date Comments Administered zFLU 4V (FLUZONE QUAD), 3 YRS+, NO PRES - ALL PAYORS IM Intramuscular 03/29/2017 zFLU 4V (FLUZONE QUAD), 3 YR S+, NO PRES - ALL PAYORS IM Intramuscular 04/22/2014 zFLU 4V (FLUARIX QUAD), 6 MO +, NO PRES - ALL PAYORS IM Intramuscular 04/22/2015 given by Tino Zaidi RN Social History Tobacco Use: Social History Observation Description Date Details (start date - stop date) Former Smoker NA - NA Sex Observation Social History Observation Description Sex Observation Female Social History Social History Social Info Question Answer Notes Tobacco Status: Patient is a former smoker packs per day 1.5 Illicit Drug Use: Patient/Family reports: No illicit d rug use Alcohol Use: Patient uses alcohol occasional Personal Safety: Has anyone close to you ever threatened to hurt you? No Has anyone ever hit, kicked, choked, or hurt you physically? No Has anyone ever forced you to have sex? No Additional Details Category Social Info Options Details Social History Occupation/Work: retired Sexually active: no Marital Status: Problems Problem Type SNOMED Code ICD Code Dates Problem Status W/U Status Risk Notes Problem Chest pain (04550265) Chest pain, unspecified (R07.9) Added On:12/21 Active confirmed Problem Urinary tract infectious disease (36402188) UTI (urinary tract infection) (599.0) Added On:08/09 Active confirmed Problem Disorder of lung (65696645) Lung disease (518.89) Added On:08/09 Active confirmed Problem Cancer (108549240) Cancer (199.1) Added On:08/09 Active confirmed Problem Abnormal cervical smear (953531886) Abnormal Pap smear (796.9) Added On:08/09 Active confirmed Problem Tachycardia (5504647) Tachycardia (R00.0) Added On:05/24 Active confirmed Problem Atherosclerotic heart disease of [place] coronary artery without angina pectoris (482798244979599) Coronary artery calcification seen on CT scan (I25.10) Added On:06/28 Active confirmed Problem Hyperlipidaemia (50116148) Hyperlipidemia, unspecified hyperlipidemia type (E78.5) Added On:12/21 Active confirmed Problem Abnormal findings on diagnostic imaging of heart and coronary circulation (306405899) Elevated coronary artery calcium score (R93.1) Added On:02/16 Active confirmed Problem Exertional dyspnea (74730213) Exertional dyspnea (R06.00) Added On:06/28 Active confirmed Plan Of Treatment Pending Test Test Name Order Date XRAY- CHEST PA AND LATERAL (41252)(SUMM- CHEST) 08/23/2011 Insurance Providers Payer Name Payer Address Payer Phone Subscriber Number Group Number Insured Name Patient Relationship to Insured Coverage Start Date Coverage End Date [place] [address] [address] [place], [place] [id number] Mihaela Silva Self - patient is the insured 0 0 [facility] [address] [address] [place], [place] [id number] Mihaela Silva Self - patient is the insured 9 Medical (General) History Medical History History ICD Code Vulvar CIS, LUIS I 2010 COPD Hypothyroidism GERD Hyperlipidemia Hypertension Carcinoma In Situ Of Skin COVID-19 Coronary artery calcification Surgical History Surgery Date(Month/Year) hernia repair 12/02/2020 left hip replaced 01/19/2020 (R) salpingectomy (R) rotator cuff repair 01/2014 (R) lower leg Laparoscopy (R) hand surgery carpal tunnel release bladder sling (R) elbow 2012 (R) hip replacement 05/07/2016 cholecystectomy vulvectomy 2001 appendectomy 1970 knee arthroscopy 2004 Hospitalization History Reason Date(Month/Year) Lt hip displacement 12/2022 see above
--- OUTSIDE RECORDS SUMMARY | 2025-06-14 17:53 | XMS_ITS | Data Portability ---
Author Organization [facility], [facility] Address [address] [address] Care Team Providers Care Licensed Final Expense Agents Name Role Phone SU OCHOA Primary Care Provider [phone] Assessment No assessment recorded. Plan of Treatment Reminders Order Date Submit Date Provider Last Modified By Organization Details Last Modified Time Details Appointments OFFICE VISIT 15 2024 08:00A M Su Ochoa MD Not available Not available Not available Lab uric acid, serum or plasma 2024 025 [facility], [address] [facility] [address], [address] [place], [address], 02/05/2025 09:45:13 C-reacti ve protein, quantita tive, serum or plasma 2024 025 [facility], [address] [place] [address] 248, [address] [place], [place], [address], 02/05/2025 09:45:15 TSH, serum or plasma [facility], [address], [address], 02/11/2025 11:51:30 Referral None recorded . Procedures None recorded . Surgeries None recorded . Imaging XR, hand, 3 or more view [address], [address] [place], [address], 02/04/2025 13:23:43 Medication Orders Medrol (Abram) 4 mg tablets in a dose pack 2024 025 [id number], [address], [facility] [address], [place], [address], 02/04/2025 12:53:38 Patient TargetsNo targets recorded. Patient InstructionsNo instructions recorded. Reason for Referral None Reported. Results Created Date Observation Date Name Description Value Unit Range Abnormal Flag Note LastModifiedBy Organization Detail LastModifiedTime 02/05/2002/04/2025 TSH TSH 2.57 uIU/m L 0.49-3 .82 Not Available [facility] [address] [facility] [address], [place], [address], 02/04/2025 14:24:39 02/05/20 25 02/05/2025 URIC ACID uric acid 6.2 mg/dL 2.5-7. 0 normal Thera peuti c targe t for gout patie nts: <6.0 mg/dL Not Available [facility] [address] [place], [address], 02/05/2025 09:45:13 02/05/20 25 02/05/2025 C-MESFIN CTIVE PROTE IN C-reactive protein <3.0 mg/L <8.0 normal Not Available [facility] [address] [place], [address], 02/05/2025 09:45:15 02/09/20 25 02/04/2025 XR, hand, 3 or more view No observ ation record ed. [facility] [address] [facility] [place], [address], 02/17/2025 15:03:43 Result Notes None recorded. Problems Name Problem SNOMED Code Status Onset Date Resolution Date Notes Provider Name and Address Organization Details Recorded Time Pain of right hand 5515924451254 09 Active 2024 Su Ochoa MD [address] [place] [address], [address], [facility] 12:52:06 Essential hypertensio n 45194567 Active 2024 Su Ochoa MD [address] [place] [address], [address] [place] [address] 5, [facility] 12:53:51 Mixed hyperlipide lavon 781214575 Active 2024 Su Ochoa MD [address] [place] [address], [address] [place] [address] 5, [facility] 12:54:12 Calcificati on of coronary artery 022518201 Active 2024 Su Ochoa MD [address] [place] [address], [address] [place] [address] 5, [facility] 12:54:45 Hypothyroid ism 93233300 Active 2024 Su Ochoa MD [address] [place] [address], [address] [place] [address] 5, [facility] 12:55:00 Chronic obstructive pulmonary disease 92674839 Active 2024 Su Ochoa MD [address] [place] [address], [address] [place] [address] 5, [facility] 12:55:35 Problem Notes None recorded. Procedures Surgical History Date Name Laterality Status Provider Name and Address Organization Details Recorded Time Hip Replacement completed [facility], Ken 02/04/2025 12:43:09 cholecystectomy [facility]04[facility]2025 12:43:18 procedure on tibia completed Letha conte [facility], [place] 02/04/2025 12:43:37 repair of rotator cuff by suture completed [facility], [place] 02/04/2025 12:44:12 arthroscopy of elbow completed [facility], Ken 02/04/2025 12:44:49 Imaging Results None recorded. Procedure Notes None recorded. Medical Equipment None Reported. Allergies Allergen ID Allergen Name Allergen Category Reaction Reaction Severity Criticality Documentation Date Start Date Code Code System Note Provider Name and Address Organization Details Recorded Time 33475 Product containin g penicilli n (product) medicatio n rash mild Not available 02/04/2025 69865 8001 SNOMED [facility], Ken 12:36:31 Medications Name Sig Start Date Stop Date Status Note LastModified by Organization Details LastModified Time cyclobenzap rine 10 mg tablet TAKE 1 TABLET BY MOUTH THREE TIMES A DAY 02/04 completed Not Available Not Available Not Available atorvastati n 80 mg tablet Take 1 tablet every day by oral route. active Not Available Not Available No t Available phenazopyri dine 200 mg tablet TAKE 1 TABLET BY MOUTH THREE TIMES A DAY NEEDED FOR PAIN 02/04 completed Not Available Not Available Not Available ciprofloxac in 500 mg tablet TAKE 1 TABLET BY MOUTH TWICE A DAY 02/04 completed Not Available Not Available Not Available levothyroxi ne 50 mcg tablet TAKE 1 TABLET BY MOUTH AT BEDTIME 02/04 completed Not Available Not Available Not Available omeprazole 20 mg capsule,del ayed release TAKE 1 CAPSULE BY MOUTH TWICE A DAY active Not Available Not Available No t Available methylpredn isolone 4 mg tablets in a dose pack TAKE 6 TABLETS ON DAY 1 DIRECTED ON PACKAGE AND DECREASE BY 1 TAB EACH DAY FOR A TOTAL OF 6 DAYS active Not Available Not Available No t Available metoprolol tartrate 25 mg tablet TAKE 1 TABLET BY MOUTH TWICE A DAY active Not Available Not Available No t Available Breo Ellipta 100 mcg-25 mcg/dose powder for inhalation INHALE 1 PUFF DAILY as needed active Not Available Not Available No t Available Vitals Date Recorded Body weight Body mass index (BMI) Body height Body temperature Oxygen saturation Heart rate Systolic And Diastolic Provider Name and Address Organization Details Last Updated DateTime 5 27838.6 3 g 27.4 kg/m2 172.72 cm 97.5 [degF] 96 % 63 /min 132/80 mm[Hg] Letha [facility] 12:30:52 Social History Question Answer Notes LastModified by [employer] Details LastModified Time Tobacco Smoking Status Former Smoker [facility] 02/04/2025 12:40:53 What Was The Date Of Your Most Recent Tobacco Screening? 02/04/2025 [email or web address] Information not available 02/04/2025 Sex: Unknown Functional Status Question Answer Note LastModified by [employer] Details LastModified Time Do you use any illicit or recreational drugs? No Information not available 02/04/2025 What is your level of alcohol consumption? Occasional Information not available 02/04/2025 Mental Status None recorded. Family History Nothing Reported. Medical History No medical history recorded. Gynecological HistoryNo gynecological history recorded. Obstetrics History GPAL:G 0 P 0 0 0 0 Past Encounters Encounter ID Performer Location Encounter Start Date Encounter Closed Date Diagnosis/Indication Diagnosis SNOMED-CT Code Diagnosis ICD10 Code Diagnosis IMO Codes Diagnosis Note [id number] Su Ochoa MD [facility] ([facility]) [address] [place] [address] 02/04/2025 12:05:41 02/04/2025 13:23:42 Pain of right hand 1870143098 69055 M79.641 914414 Patient has redness and tenderness of the right MCP joint. Will start Medrol Dosepak as it appears to be inflammato ry. Will start Medrol Dosepak, obtain x-rays, and check labs. Will include uric acid to evaluate for gout. Mixed hyperlipidemia 267 661097 E78.2 82840 Continue statin Calcificat ion of coronary artery 797625308 I25.10 80974212 Patient is tolerating metoprolol atorvastat in. Hypothyroidism 48465777 E03.9 51694562 Will recheck TSH since she is off her medication . Chronic ob structive pulmonary disease 03758587 J44.9 983032585 Stable on current medication s. Health Concerns Section Related Observation LastModified by Organization Detai ls LastModified Time None Recorded Concern Status LastModified by Organization Details LastModified Time None Recorded Advance Directives Directive None Recorded Payers Insurance Date Sequence Insurance Name Policy Number Policy Wisdom Covered Member ID Wisdom Member ID Guarantor Name 02/09/[facility] [facility] [place] [facility] Mihaela Silva [id number] Mihaela Ricardo 02/09/2025 1 [place] Mihaela Ng Ricardo [id number] Mihaela Silva 02/09/2025 2 [facility] (MEDICARE SUPPLEMENT) Mihaela Ricardo [id number] Mihaela Silva Notes Date Note Type Note Provider Name and Address Organization Details Recorded Time 02/04/2025 text/html Annual WellnessR eported by PatientSocial/Behaviora l HistoryFor fracture risk, patient reportshistory of fractures. For diet and nutrition, patient reportshealthy diet. For physical activity, patient reportsgood physical condition. For additional lifestyle factors, patient reportsno tobacco useanddrinks alcohol (mild-moderate).Mental Status:For depression risk, patient reportssignificant changes in weightbut reportsnever feels sad, empty, or tearful,no loss of interest in activities,no sleep disturbances or insomnia,no agitation,no loss of energy,no feelings of worthlessness or guilt,no thoughts of suicide,no history of depression, andno history of mood disorders.Functional AbilityFor hearing, patient reportsloss of hearing: in both earsandfluctuating. For vision, patient reportsno vision problems. 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 She states the fingers on that side are not able to be straightened due to pain. Patient has noticed redness and swelling of her middle MCP joint.She had some labs previously this year,.Pt states she was taking Levothyroxin and lost 30 pounds. She has since stopped that medication. Su Ochoa MD [address] [place] [address], [phone], [facility] 02/07/2025 19:57:56 OBGyn Episode No OBEpisode recorded.
--- OUTSIDE RECORDS SUMMARY | 2025-06-14 17:53 | XMS_ITS | Patient Health Record ---
Author Organization [facility] dow[facility] Address [address] [place] [address] Care Team Providers Care Web Development Intern Name Role Phone Te Rosado MD Primary Care Provider Unavail able DR. Brown Francis Unavailable [phone] Gabriel Chatterjee MD Unavailable Unavailable Allergies Allergen (clinical drug ingredient) Drug/Non Drug Allergy documented on EMR Reaction Allergy Type Onset Date Status Penicillin G Benzathine Unknown Drug Allergy Active Reason For Referral No Information Medications Medication SIG (Take, Route, Fr equency, Duration) Notes Start Date End Date Status Celecoxib Active Metoprolol Tartrate Active Omeprazole Active Advair Diskus Active Levothyroxine Sodium Active Atorvastatin Calcium Active Social History Tobacco Use: Social History Observation Description Date Details (start date - stop date) Former Smoker NA - NA Social History Alcohol Social Info Question Answer Notes Drugs Have you used drugs other than those for medical reasons in the past 12 months? No Alcohol Screen Did you have a drink containing alcohol in the past year? Yes How often did you have a drink containing alcohol in the past year? Monthly or less (1 point) How many drinks did you have on a typical day when you were drinking in the past year? 1 or 2 drinks (0 point) How often did you have 6 or more drinks on one occasion in the past year? Never (0 point) Points 1 Interpretation Negative Alcohol Use Frequency of alcohol use over the past year: Monthly or less Tobacco Use: Social Info Question Answer Notes Smoking Exclusion - Screenin g not Performed Patient not counseled: Patient not eligible Smoking Are you a: former smoker Additional Findings: Tobacco Non-User Current no n-smoker Additional Details Category Social Info Options Details Miscellaneous: Marital status: Living with: alone Problems No Known Problems Plan Of Treatment No Information Insurance Providers Payer Name Payer Address Payer Phone Subscriber Number Group Number Insured Name Patient Relationship to Insured Coverage Start Date Coverage End Date [place]IC[place] [address] [place] [address] [id number] Mihaela Silva Self - patient is the insured [employer] [address] [address] [place] [address] [id number] PLAN G Mihaela Silva Self - patient is the insured 9 Medical (General) History Medical History History ICD Code Respiratory Problems High Cholesterol hypthyroidism htn reflux Surgical History Surgery Date(Month/Year) hiatal hernia repair - Dr Francis 12/03/19 21 right fallopian tube removed brent appendectomy Lt. Hip Replacement 12/2019 RT. Hip Replacement 04/2018 Rt. TIB/ FIB 05/2004 Hospitalization History Reason Date(Month/Year) See Surgical History
[2025-06-14 18:09] VITALS: BP 164/77; PULSE 89; RESP 16; TEMP 36.8; O2SAT 99
--- NOTE | 2025-06-14 18:16 | XRR_ITS ---
PROCEDURE INFORMATION: Exam: XR Right Ribs with PA Chest Exam date and time: 06/14/2025 6:19 PM Age: 74 years old Clinical indication: Injury or trauma; Fall; Rib area; Blunt trauma (contusions or hematomas) TECHNIQUE: Imaging protocol: Radiologic exam of the right ribs with PA chest. Views: 3 views COMPARISON: No relevant prior studies available. FINDINGS: Lungs: Some probable pleural-parenchymal scarring apices. Some probable patchy atelectasis left lung base. Can not entirely rule out infiltrate. Small to moderate-sized hiatal hernia. Pleural spaces: Unremarkable. No pleural effusion. No pneumothorax. Heart/Mediastinum: Small to moderate-sized hiatal hernia. Mild tortuosity thoracic aorta with calcification. No cardiomegaly. Bones/joints: Demineralization consistent with the patient's age. Moderate degenerative changes thoracic spine. No definite rib fracture seen but can not be entirely excluded. Upper abdomen: Surgical clips gallbladder fossa consistent with a previous cholecystectomy. XR/XR ribs RT mn 3V w CXR1V [id number] IMPRESSION: 1. Probable patchy atelectasis left base. Can not entirely rule out pneumonia. 2. Probable pleural-parenchymal scarring apices. 3. Mild to moderate-sized hiatal hernia. Complete
--- NOTE | 2025-06-14 18:17 | W.ED.FALL ---
HPI - Fall General: Chief Complaint: Extremity Injury, Lower Stated Complaint: R hip pain, fall Time Seen by Provider: 06/14/25 18:12 Source: patient Mode of arrival: ambulatory Limitations: no limitations History of Present Illness: Patient is a nice 74-year-old female presents to ED today for evaluation following a fall that occurred 6 days ago. Patient states she was at her house when she tripped and fell and landed on concrete. She feels like she landed directly onto her right hip. She has had a previous hip arthroplasty several years ago and then a revision approximately 2 years ago. She states she has continued to ambulate since the fall with the help of a cane. She also feels like she may have injured her right ribs. She states she does not have much discomfort and mainly notices it when she coughs. She is not complaining of shortness of breath or difficulty breathing. No abdominal pain. Denies any other injuries or complaints related to the fall. MD complaint: fall Onset (ago): day(s) Fall from: standing Fall witnessed: no Place fall occurred: home Loss of consciousness: None Prolonged down time: no Symptoms prior to fall: none Context: tripped/slipped Severity: mild Associated symptoms-after fall: Reports chest pain (R rib pain); Denies abdominal pain, difficulty walking, headache(s), hematuria, lightheadedness or neck pain Related Data Home Medications ?Medication ?Instructions ?Recorded ?Confirmed acetaminophen 500 mg tablet 1,000 mg PO Q6H PRN Pain 09/20/23 04/28/25 cholecalciferol (vitamin D3) 125 125 mcg PO QAM 09/20/23 04/28/25 mcg (5,000 unit) tablet (Vitamin D3) Previous Rx's ?Medication ?Instructions ?Recorded right hip abduction brace #1 ea 07/25/23 fluticasone furoate 100 1 inh inhalation DAILY #60 ea 12/31/24 mcg-vilanterol 25 mcg/dose inhalation powder (Breo Ellipta) omeprazole 20 mg capsule,delayed 20 mg PO BID #90 caps 01/11/25 release atorvastatin 80 mg tablet 80 mg PO BEDTIME #90 tabs 01/27/25 metoprolol tartrate 25 mg tablet 25 mg PO BID #180 tabs 04/05/25 Allergies Allergy/AdvReac Type Severity Reaction Status Date / Time Penicillins Allergy Intermediate ALGY-Rash Verified 04/28/25 13:46 Review of Systems Eyes: Denies: change in vision, blurry vision, photophobia, eye discharge, floaters or seeing flashes ENMT: Denies: throat pain, odynophagia, ear or mastoid pain, ear discharge, nasal discharge, epistaxis or sinus pain Card: Reports: chest pain (R rib pain); Denies: palpitations, lightheadedness, syncope or pre-syncope Resp: Denies: dyspnea or pain on inspiration GI: Denies: abdominal pain : Denies: flank pain or hematuria Musc: Reports: joint pain (R hip); Denies: neck pain, back pain or extremity pain Neuro: Denies: headache(s), numbness in extremities, weakness in extremities, sensory changes, difficulty walking or dizziness PFSH ED PFSH: Medical History Infection of prosthesis Synovial cyst of popliteal space [Izaguirre], right knee Cancer of perirenal tissue Hypercholesteremia Hypothyroidism Hypertension COPD (chronic obstructive pulmonary disease) Surgical History History of bilateral hip replacements History of rotator cuff surgery History of carpal tunnel release History of hernia repair History of cholecystectomy History of bladder surgery Family History Mother Cancer Uterine Other Anesthesia complication CAD (coronary artery disease) Diabetes Hyperlipidemia Hypertension Stroke Denies family history of Liver disease Aneurysm Autoimmune disease Clotting disorder Dementia Hyperthyroidism Psychiatric illness Chronic kidney disease (CKD) Social History Smoking and tobacco/nicotine status: former use of tobacco/nicotine Alcohol intake: current Alcohol intake frequency: few times a month Substance/Drug Use: never Lives independently: Yes Marital status: / Number of children: 1 Current occupational status: retired Debi/Yazidism: Judaism Special debi needs: No Agree to transfusion: Yes Physical Exam Const: COMMON NORMALS: no acute distress, average body habitus, patient oriented x3, no limitations, healthy appearing, alert and well nourished GENERAL APPEARANCE: cooperative ORIENTATION/CONSCIOUSNESS: Yes awake, Yes oriented to person, Yes oriented to place and Yes oriented to time HENMT: COMMON NORMALS: normocephalic, atraumatic and TM's normal bilaterally HEAD & SCALP: normal to inspection, normocephalic and atraumatic; no Fregoso's sign, no hematoma and no raccoon eyes FACE & SINUS: normal facial exam TYMPANIC MEMBRANE: TM's normal bilaterally MOUTH: other (no intraoral injuries noted) Eye: COMMON NORMALS: Equal, round and reactive pupils present and EOMs intact bilaterally GENERAL EYE: appearance normal, both eyes and all related structures and normal light reflex PUPIL: Yes Equal, round and reactive pupils present DIRECT OPHTHALMOSCOPY: Yes normal light reflex Neck/C-Spine: COMMON NORMALS: full ROM GENERAL: Yes normal visual inspection CERVICAL SPINE: Yes cervical ROM normal, No pain with cervical ROM, No Cervical spine tenderness, No step off deformity and No Paracervical muscle tenderness Chest: COMMONS NORMALS: normal inspection of the chest OTHER: mild R anteriolateral rib pain; no crepitus/normal lung sounds Resp: COMMON NORMALS: normal respiratory effort and clear to auscultation bilaterally AUSCULTATION: clear to auscultation bilaterally Cardio: COMMON NORMALS: regular rate and regular rhythm RATE: regular rate RHYTHM: regular rhythm GI: COMMON NORMALS: Normal to inspection, nondistended, normoactive bowel sounds present, Soft to palpation, non-tender, No hepatosplenomegaly present and no masses INSPECTION: Yes normal to inspection and No abdominal wall ecchymosis AUSCULTATION: Yes normoactive bowel sounds PALPATION: Yes Soft to palpation and Yes No hepatosplenomegaly present Back/Pelvis: COMMON NORMALS: thoracic and lumbar spine normal to inspection, no thoracic nor lumbar tenderness and thoraco-lumbar ROM normal Extremity: COMMON NORMALS: normal to inspection, capillary refill normal, no joint enlargement, no clubbing, cyanosis or edema, no calf tenderness and no pedal edema GENERAL: Yes normal exam except as noted RIGHT LOWER EXTREMITY: Yes hip joint Right hip: Yes inspection (normal gross inspection-no shortening/rotation), Yes ROM (fairly normal passive ROM of R hip) and Yes neurovascular exam (normal) Neuro: THI COMA SCALE: document GCS findings Thi coma scale eye opening: Spontaneous Thi coma scale verbal response: Orientated [place] coma scale motor response: Obey commands [place] coma scale total score: 15 COMMON NORMALS: patient oriented x3, CN's II-XII intact bilaterally, moves all extremities, no focal motor deficits, no sensory deficits noted and gait normal (ambulating well with help of cane) SENSORIUM/ORIENTATION: Yes alert, Yes oriented to person, Yes oriented to place and Yes oriented to time SPEECH: speech normal GAIT: Yes Normal gait present Skin: COMMON NORMALS: no rashes or lesions noted GENERAL SKIN EXAM: no rashes or lesions noted TRAUMA: no lacerations or abrasions Course Vital Signs: Vital signs: Vital Signs Temperature 98.2 F 06/14/25 18:09 Pulse Rate 89 06/14/25 18:09 Respiratory Rate 16 06/14/25 18:09 Blood Pressure 164/77 06/14/25 18:09 Pulse Oximetry 99 06/14/25 18:09 Oxygen Delivery Me thod Room Air 06/14/25 18:09 MDM - Fall Medical Decision Making Patient is a 74-year-old female presents to ED today following a fall 6 days ago. Her main complaint is some mild pain to her right ribs and right hip. She is ambulatory here with the help of a cane. XRs of the right ribs and right hip/pelvis were obtained today. Personal interpretation of these films are unremarkable. Patient will be allowed discharge. Recommend follow-up with primary care in 1 to 2 weeks. She was given return precautions. Medical Records I reviewed the patient's medical records. XR interpretation done by ED provider, pending radiology final review Discharge Plan Discharge Patient Disposition: Home Clinical Impression: Fall Qualifiers: Encounter type: initial encounter Qualified Code(s): W19.XXXA - Unspecified fall, initial encounter Contusion of right hip Qualifiers: Encounter type: initial encounter Qualified Code(s): S70.01XA - Contusion of right hip, initial encounter Contusion of rib on right side Qualifiers: Encounter type: initial encounter Qualified Code(s): S29.8XXA - Other specified injuries of thorax, initial encounter Condition: Stable Prescriptions: No Action (DME) right hip abduction brace See Rx Instructions .Route .MEDSUPPLY Qty: 1 0RF Rx Instructions: As directed fluticasone furoate-vilanterol [Breo Ellipta] 100-25 mcg/dose blister with device 1 inh inhalation DAILY Qty: 60 3RF omeprazole 20 mg capsule,delayed release(DR/EC) 20 mg PO BID Qty: 90 1RF atorvastatin 80 mg tablet 80 mg PO BEDTIME Qty: 90 1RF metoprolol tartrate 25 mg tablet 25 mg PO BID Qty: 180 0RF Tylenol Ex Str Rapid Release 500 mg Tablet 1,000 mg PO Q6H PRN (Reason: Pain) Vitamin D3 125 mcg (5,000 unit) Tablet 125 mcg PO QAM Discharge Orders: Discharge ED (Routine); Ordered 06/14/25 Ordered By: Arielle August Referrals: Timothy Ochoa MD [Primary Care Provider, Family Practice] Patient Instructions: Hip Contusion (ED), Rib Contusion (ED), Patient Portal & Vivian Instructions Activity Restrictions/Additional Instructions: As we discussed, I did not visualize any acute fractures to your right ribs or right hip/pelvis. Recommend you follow-up with primary care in 1 to 2 weeks if symptoms do not continue to improve at home with conservative therapies. You may return to the emergency department at anytime for worsening pain, trouble ambulating, shortness of breath or difficulty breathing, abdominal pain, or any other concerns you may have. 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
== END 2025-06-14 18:43 | disposition home or self-care (01) ==
PROVIDERS: Emergency Provider Physician Assistant; PCP Family Medicine
DX: S70.01XA Contusion of right hip, initial encounter (principal); S29.8XXA Other specified injuries of thorax, initial encounter; Z87.891 Personal history of nicotine dependence; J44.9 Chronic obstructive pulmonary disease, unspecified; I10 Essential (primary) hypertension; Z96.641 Presence of right artificial hip joint; Z85.528 Personal history of other malignant neoplasm of kidney; W01.0XXA Fall on same level from slipping, tripping and stumbling without subsequent striking against object, initial encounter
CPT/HCPCS: 71101; 73502; 99284